=== PATIENT | female | born 1990 | race Caucasian/White ===

== ENCOUNTER 2023-07-31 07:03 | Day surgery (SDC) | payer BC ==
[2023-07-31] MEDS ORDERED: Lactated Ringers 1,000 ML IV ONE (07:20)
[2023-07-31 07:24] LABS: HCG URINE TEST NEGATIVE (NEGATIVE)
[2023-07-31] MEDS: Lactated Ringers 1,000 ML IV SCH (07:59)
[2023-07-31] MEDS ORDERED: Versed 2 MG/2 ML Injection ONE (08:45)
[2023-07-31] MEDS ORDERED: Xylocaine-Mpf 2% 5 Ml Vial ONE (08:46)
[2023-07-31] MEDS ORDERED: DIPRIVAN 200 MG/20 ML IV ONE ×2 (08:52→08:57)
[2023-07-31] MEDS ORDERED: SUBLIMAZE 100 MCG/2 ML ONE (08:53)
[2023-07-31] MEDS ORDERED: DEXMEDETOMIDINE 80 MCG/20ML-NS IV ONE (09:07)
[2023-07-31 09:38] VITALS: RESP 18; TEMP 97.4
[2023-07-31 09:53] VITALS: BP 118/67; PULSE 87; O2SAT 96
[2023-07-31 11:26] LABS: CHLAMYDIA DNA NOT DETECTED (NEGATIVE); GC DNA Probe NOT DETECTED (NEGATIVE)
--- NOTE | 2023-07-31 11:36 | OP ---
SURGERY DATE/TIME: 07/31/2023 0843 PREOPERATIVE DIAGNOSIS: Dyspareunia, pelvic pain and inability to perform exam in the office. POSTOPERATIVE DIAGNOSIS: Dyspareunia, pelvic pain and inability to perform exam in the office. PROCEDURES: 1) Pelvic exam under anesthesia. 2) Pap smear obtained. 3) GC, Chlamydia and wet mount testing collected. SURGEON: Dr. Ciara Sanchez D.O. ANESTHESIA: MAC. FINDINGS: Normal appearing vaginal introitus and vaginal canal. Normal appearing cervix. Bleeding was noted as the patient was on her period. However, she stated it was very light. There was no vaginal septum or other abnormalities within the vaginal canal. Pelvic exam was performed however hard to determine uterine size and to palpate ovaries due to patients body habitus. ESTIMATED BLOOD LOSS: None. The patient was on her menses. IV FLUIDS: 600 ml. SPECIMENS: Pap smear and swab for Gonorrhea, Chlamydia and wet mount. COMPLICATIONS: None. INDICATION FOR PROCEDURE: This is a 32-year-old 0 patient who is newly approximately one year ago and is having difficulty with intercourse due to pain. She had a prior examination a pelvic examination at 16 years old, which was very traumatizing to her. She has not had an exam since that time. She had abstained from sexual activity until her marriage. She subsequently is having difficulty with dyspareunia and pain on intercourse. She came to the office and I was unable to examine past her labia. I then recommended we have a pelvic exam under anesthesia and the patient was in agreement as she was having issues with intercourse. Risks and benefits were discussed with the patient. We discussed with the patient that we would do pelvic exam under anesthesia with possible resection of vaginal septum, possible hymenectomy and possible ultrasound under anesthesia. We would obtain Pap smear as well as Gonorrhea, Chlamydia and vaginal studies for yeast and bacterial vaginosis (BV). The patient was in agreement. The risk of surgery included increased trauma for examination, risk of bleeding and infection. The patient accepted these risks and desired to proceed. DESCRIPTION OF PROCEDURE AND FINDINGS: The patient is taken to the operating room. She was placed supine on the table. We did place her in Yellofins stirrups prior to induction of MAC anesthesia. MAC anesthesia was administered by Francisco Chin CRNA. Once the patient was anesthetized, we began the procedure. We draped her sterilely however this was not necessarily a sterile clean procedure. We did not do a vaginal prep as I was collecting vaginal studies. A Elham speculum was then utilized in the vagina. The inspection was performed. The speculum was then placed. The cervix was visualized. There were some noted bleeding from her menses. Sponge was then utilized to clear any blood products and the Pap test was obtained. A vaginal-cervical swab was then used for GC, Chlamydia and wet mount. The findings are noted as above. Once this was completed, a pelvic examination was then performed digitally which proved very difficult as it would be in the office due to the patient's body habitus. Her uterine size was unable to be determined as well as ovaries were not able to be palpated due to her body habitus. At this time, the procedure was complete. There was noted a small, little area of bleeding to about the introitus at the hymenal level of the hymenal ring. This bleeding was minor and no suture was required. The patient tolerated the procedure well. Sponge and lap counts were correct x2. The patient was taken to the recovery room in stable condition.
== END 2023-07-31 09:58 | disposition home or self-care (01) ==
LOC: SDC 07:03
PROVIDERS: ATTEND Family Medicine
DX: N94.10 Unspecified dyspareunia (principal); R10.2 Pelvic and perineal pain
CPT/HCPCS: 81025; 87491; 87591; 87624; 88175; J2250; J2704; J3010; G0476